=== PATIENT | female | born 1985 | race Two or more races ===

== ENCOUNTER 2018-07-21 17:57 | Inpatient (IN) | payer OTHER ==
[~2018-07-21] VITALS: Ht 160 cm; Wt 86.6 kg
[2018-07-21] MEDS ORDERED: ZANTAC300 MG PO (19:36)
[2018-07-21] MEDS ORDERED: PRENATAL 19 TA1 EAC1 PO (19:36)
== END 2018-07-23 13:28 | disposition home or self-care (01) | DRG 832 ==
LOC: LDR 17:57 → OB/GYN 17:57
PROVIDERS: ADMIT Obstetrics & Gynecology Obstetrics
PROC: 4A1HXCZ Monitoring of Products of Conception, Cardiac Rate, External Approach (ICD-10-PCS; principal; 2018-07-21)
DX: O23.33 Infections of other parts of urinary tract in pregnancy, third trimester (principal); O47.03 False labor before 37 completed weeks of gestation, third trimester; Z34.03 Encounter for supervision of normal first pregnancy, third trimester

== ENCOUNTER 2018-08-01 18:06 | Inpatient (IN) | payer OTHER ==
[~2018-08-01] VITALS: Ht 160 cm; Wt 89.4 kg
[~2018-08-01 18:06] MED LIST: PRENATAL 19 TA1 EAC1 PO; ZANTAC300 MG PO
== END 2018-08-04 17:05 | DRG 833 ==
LOC: OBS/DEL 18:06 → EDBD 18:06 → OBS/DEL 18:42 → OB/GYN 08-02 13:08 → LDR 08-02 13:08 → OBS/DEL 08-02 13:08 → OB/GYN 08-02 15:38
PROVIDERS: ADMIT Obstetrics & Gynecology Obstetrics
PROC: BY4FZZZ Ultrasonography of Third Trimester, Single Fetus (ICD-10-PCS; principal; 2018-08-02)
DX: O23.33 Infections of other parts of urinary tract in pregnancy, third trimester (principal)

== ENCOUNTER 2018-08-14 07:07 | Inpatient (IN) | payer OTHER ==
[~2018-08-14] VITALS: Ht 160 cm; Wt 57.6 kg
== END 2018-08-16 14:13 | disposition home or self-care (01) | DRG 807 ==
LOC: LDR 07:07 → OB/GYN 07:07
PROVIDERS: ADMIT Obstetrics & Gynecology Obstetrics
PROC: 10E0XZZ Delivery of Products of Conception, External Approach (ICD-10-PCS; principal; 2018-08-14)
PROC: 4A1HXCZ Monitoring of Products of Conception, Cardiac Rate, External Approach (ICD-10-PCS; 2018-08-14)
DX: O80 Encounter for full-term uncomplicated delivery (principal); Z37.0 Single live birth; Z3A.38 38 weeks gestation of pregnancy